=== PATIENT | male | born 1965 ===

== ENCOUNTER 2018-01-09 20:41 | Emergency (ER) | payer OTHER ==
[~2018-01-09] VITALS: Ht 170.2 cm; Wt 72.6 kg
== END 2018-01-09 22:22 | disposition home or self-care (01) ==
LOC: ER 20:41
DX: S01.81XA Laceration without foreign body of other part of head, initial encounter (principal); W45.8XXA Other foreign body or object entering through skin, initial encounter; Y93.89 Activity, other specified; Y92.89 Other specified places as the place of occurrence of the external cause; Y99.8 Other external cause status

== ENCOUNTER 2021-10-21 00:22 | Emergency (ER) | payer OTHER ==
[~2021-10-21] VITALS: Ht 177.8 cm; Wt 80.3 kg
[2021-10-21] MEDS ORDERED: KETO10TA2 PO (03:21)
[2021-10-21] MEDS ORDERED: NORFLEX100MG PO ×2 (03:21→03:22)
== END 2021-10-21 03:43 ==
LOC: ER 00:22
DX: S76.011A Strain of muscle, fascia and tendon of right hip, initial encounter (principal); S86.911A Strain of unspecified muscle(s) and tendon(s) at lower leg level, right leg, initial encounter; W19.XXXA Unspecified fall, initial encounter; Y93.89 Activity, other specified; Y92.89 Other specified places as the place of occurrence of the external cause; M54.59 Other low back pain